=== PATIENT | female | born 1985 | race Asian ===

== ENCOUNTER → 2017-02-17 | Outpatient (CLI) | payer OTHER | END | disposition home or self-care (01) | LOC: EMPHLTH 07:52 | PROVIDERS: ATTEND Internal Medicine | DX: R76.11 Nonspecific reaction to tuberculin skin test without active tuberculosis (principal) ==

== ENCOUNTER 2018-04-20 22:39 | Emergency (ER) | payer OTHER ==
[~2018-04-20] VITALS: Ht 162.6 cm; Wt 77.3 kg
[2018-04-20] MEDS ORDERED: FAMOTIDINE 20 MG TABLET PO ONE (23:15)
[2018-04-20] MEDS ORDERED: DEXAMETHASONE SOD PHOS 4 MG/ML 5 ML VIAL IM ONE (23:15)
[2018-04-20] MEDS ORDERED: FEXOFENADINE HCL 60 MG TABLET PO ONE (23:15)
[2018-04-20 23:33] VITALS: BP 133/84
== END 2018-04-20 23:40 | disposition home or self-care (01) ==
LOC: EMS 22:40
DX: T78.40XA Allergy, unspecified, initial encounter (principal); R21 Rash and other nonspecific skin eruption; F17.210 Nicotine dependence, cigarettes, uncomplicated; X58.XXXA Exposure to other specified factors, initial encounter
CPT/HCPCS: 96372; 99283; J1100